=== PATIENT | male | born 1950 | race Caucasian/White ===

== ENCOUNTER → 2017-01-31 | Outpatient (CLI) | payer OTHER ==
--- NOTE | 2017-01-31 09:15 | DIAGNOSTIC IMAGING REPORT ---
EXAMINATION: RENAL ULTRASOUND CLINICAL HISTORY: N28.1 Renal cyst COMPARISON STUDY: None FINDINGS: The right kidney measures 11.4 cm. The left kidney measures 12.6 cm. There is no evidence of hydronephrosis. There is mild renal cortical thinning. There is a 2.7 cm left renal cyst. No bladder abnormalities are visualized. Bilateral ureteral jets were visualized. IMPRESSION : 1. 2.7 cm left renal cyst 2. Renal cortical thinning 3. No evidence of hydronephrosis Electronically signed by: Jose Eduardo Cook M.D. 01/31/2017 9:14 AM Dictated Date/Time: 01/31/2017 9:10 AM
== END | disposition home or self-care (01) ==
LOC: C.ULTR 08:33
PROVIDERS: ATTEND Urology
DX: N28.1 Cyst of kidney, acquired (principal)

== ENCOUNTER → 2017-08-14 | Outpatient (CLI) | payer BC ==
--- NOTE | 2017-08-14 15:41 | DIAGNOSTIC IMAGING REPORT ---
CT SINUSES WITH BRAIN LAB CT DOSE: 269.19 mGycm CLINICAL HISTORY: Sinusitis, headache. Sinus pressure. TECHNIQUE: Helical images were acquired in the transverse plane. Sagittal and coronal reformatted images were reviewed. A dose lowering technique was utilized adhering to the principles of ALARA. COMPARISON STUDY: None. FINDINGS: There is no hydrocephalus. There is minor mucosal thickening within the frontal sinuses. There is minor mucosal thickening within the right maxillary sinus. There is partial opacification right-sided ethmoid air cell. The ethmoid notches are projected. The olfactory grooves measure 5 mm in depth. There is partial pneumatization of middle turbinates. The ossicular units are patent bilaterally. The frontal and ethmoidal recesses appear patent. IMPRESSION: 1. No evidence of acute sinusitis 2. Mild mucosal thickening 3. The ostiomeatal units are patent bilaterally. Electronically signed by: Jose Eduardo Cook M.D. 08/14/2017 3:40 PM Dictated Date/Time: 08/14/2017 3:37 PM
== END | disposition home or self-care (01) ==
LOC: C.CTS 15:00
PROVIDERS: ATTEND Otolaryngology
DX: J34.2 Deviated nasal septum (principal); J32.2 Chronic ethmoidal sinusitis